=== PATIENT | male | born 1990 | race Caucasian/White ===

== ENCOUNTER 2017-02-19 06:23 | Emergency (ER) | payer OTHER ==
[~2017-02-19] VITALS: Ht 180.3 cm; Wt 111.3 kg
[~2017-02-19 06:23] MED LIST: ATARAX,VISTARIL25 MG PO
[2017-02-19] MEDS ORDERED: ZOLOFT25 MG PO (07:15)
[2017-02-19] MEDS ORDERED: AMOX TR-K CLV1 EAC3 PO (07:16)
[2017-02-19] MEDS ORDERED: BENTYL20 MG PO (07:49)
[2017-02-19] MEDS ORDERED: ZOFRAN8 MG PO (07:49)
[2017-02-19 08:53] VITALS: BP 132/88
== END 2017-02-19 08:55 | disposition home or self-care (01) ==
LOC: EME 06:23
DX: R19.7 Diarrhea, unspecified (principal); R10.9 Unspecified abdominal pain; R11.0 Nausea; T36.0X5A Adverse effect of penicillins, initial encounter
CPT/HCPCS: 99281; 99284

== ENCOUNTER 2018-04-14 14:46 | Emergency (ER) | payer SELFPAY ==
[~2018-04-14] VITALS: Ht 180.3 cm; Wt 115.4 kg
[~2018-04-14 14:46] MED LIST changes: +AMOX TR-K CLV1 EAC3 PO; +BENTYL20 MG PO; +ZOFRAN8 MG PO; +ZOLOFT25 MG PO
[2018-04-14] MEDS ORDERED: PERCOCET 5/31 TABLET PO (16:45)
[2018-04-14] MEDS ORDERED: MOTRIN800 MG PO (16:45)
[2018-04-14 17:00] VITALS: BP 154/96
== END 2018-04-14 17:00 | disposition home or self-care (01) ==
LOC: EME 14:46
DX: S20.212A Contusion of left front wall of thorax, initial encounter (principal); W03.XXXA Other fall on same level due to collision with another person, initial encounter; Y92.512 Supermarket, store or market as the place of occurrence of the external cause
CPT/HCPCS: 71100; 99281; 99283